=== PATIENT | female | born 1980 | race Two or more races ===

== ENCOUNTER 2021-03-05 13:05 | Emergency (ER) | payer OTHER ==
[~2021-03-05] VITALS: Ht 157.5 cm; Wt 61.2 kg
[2021-03-05] MEDS ORDERED: SYNTHROID50 MCG (13:19)
== END 2021-03-05 14:36 | disposition home or self-care (01) ==
LOC: ER 13:05
DX: S50.02XA Contusion of left elbow, initial encounter (principal); S50.12XA Contusion of left forearm, initial encounter; W18.39XA Other fall on same level, initial encounter; Y93.89 Activity, other specified; Y92.098 Other place in other non-institutional residence as the place of occurrence of the external cause; Y99.8 Other external cause status

== ENCOUNTER 2021-03-11 06:00 | Day surgery (SDC) | payer OTHER ==
[~2021-03-11 06:00] MED LIST: SYNTHROID50 MCG
[2021-03-11] MEDS ORDERED: ALEVE220 MG PO (13:30)
[2021-03-11] MEDS ORDERED: DUI500 PO (13:30)
[2021-03-11] MEDS ORDERED: PERCOCET 5-3251 EACH PO (13:30)
== END 2021-03-11 15:00 | disposition home or self-care (01) ==
LOC: CIR.AMB 06:00
PROVIDERS: ATTEND Orthopaedic Surgery
DX: S52.532A Colles' fracture of left radius, initial encounter for closed fracture (principal); S52.292A Other fracture of shaft of left ulna, initial encounter for closed fracture; Z20.822 Contact with and (suspected) exposure to COVID-19
CPT/HCPCS: 25609; 25652; 20902; C1776